=== PATIENT | male | born 1975 | race Caucasian/White ===

== ENCOUNTER → 2021-04-23 | Outpatient (CLI) | payer OTHER ==
--- NOTE | 2021-04-24 03:59 | REP ---
INDICATION: TINNITUS COMPARISON: None. TECHNIQUE: Norman scale and color Doppler evaluation using linear high frequency transducer Findings: FINDINGS: Two-dimensional norman scale and color images demonstrate normal arterial lumen with laminar flow and no appreciable narrowing. Color Doppler interrogation demonstrates normal arterial wave patterns and velocities with no significant spectral broadening. Normal flow direction is appreciated in the bilateral vertebral arteries. ICA peak systolic velocity: Right 46.0 cm/s; Left 54.9 cm/s ICA diastolic velocity: Right 25.6 cm/s; Left 24.6 cm/s ECA peak systolic velocity: Right 53.3 cm/s; Left 62.2 cm/s CCA peak systolic velocity: Right 96.2 cm/s; Left 79.3 cm/s ICA/CCA ratio: Right 0.48 cm/s; Left 0.69 cm/s IMPRESSION: No hemodynamically significant areas of narrowing or stenosis appreciated. Based on set standards narrowing falls within the normal/less than 50% range. <Electronically signed by Chucky Shin > 04/24/21 0356
== END ==
LOC: M RAD 11:37 → EDUNIT# 12:00
PROVIDERS: ATTEND Otolaryngology
DX: H93.19 Tinnitus, unspecified ear (principal)

== ENCOUNTER 2021-05-11 06:33 | Day surgery (SDC) | payer OTHER ==
[~2021-05-11] VITALS: Ht 172.7 cm; Wt 79.8 kg
[~2021-05-11 06:33] MED LIST: NS 1,000 ML IV ONE
--- OUTSIDE RECORDS SUMMARY | 2021-05-11 06:36 | CCD | Continuity of Care Document ---
Author Author Alan SAINI DO Organization Unknown Address [address] [place] [phone] Phone [phone] Problems Description No Information Available Social History Type Date Description Comments Sex Unknown Allergies, Adverse Reactions, Alerts Description No Known Drug Allergies Medications Active Medications SIG Qnty Indications Ordering Provide r Date Lisinopril 10mg Tablets Osvaldo Saini DO 03/05/2021 Immunizations Description No Information Available Vital Signs Date Vital Result Comment 03/27/2021 10:09am Height 68 inches 5'8" Weight 175.00 lb BMI (Body Mass Index) 26.6 kg/m2 Pain Level 0 03/05/2021 8:36am Height 68 inches 5'8" Weight 175.00 lb BMI (Body Mass Index) 26.6 kg/m2 Respiratory Rate 18 /min Pain Level 0 Results Description No Information Available Procedures Date Code Description Status 03/05/2021 48794 Office/Outpatient [facility] 15- 29 Minutes Completed Medical Devices Description No Information Available Encounters Type Date Location Provider Dx Diagnosis Office Visit 03/05/2021 8:30a Main Office Osvaldo Saini DO H93.11 Tinnitus, right ear Assessments Date Code Description Provider 03/27/2021 H93.11 Tinnitus, right ear Osvaldo santana DO 03/05/2021 H93.11 Tinnitus, right ear Carlo maddox MD 03/05/2021 H93.11 Tinnitus, right ear Osvaldo santana DO Plan of Treatment Future Appointment(s):* 05/15/2021 1:15 pm - Raffi Santoyo MS, Pac at Main Office 03/27/2021 - Osvaldo Saini DO* H93.11 Tinnitus, right ear* Comments:* This is a 45 year old patient who presents to clinic for MRI follow up of brain. Patient reports ringing in right ear and sensitivity to loud noises. Denies any headaches, nausea, dizziness. Imaging was pulled up and personally reviewed by the provider which revealed, possible sinusitis along with normal results and no masses, which was confirmed on the report. At this time the provider is recommending a referral to Dr. Rivera due to hearing sensitivity and sensitivity to loud noises and to FU in 6-8 weeks with us. Patient was advised to call us sooner if symptoms worsen or change.I discussed the patients diagnosis with them went over imaging and made conservative recommendations. After discussion we together with the patient decided on a plan. I explained if any changes in neurological exam or progressive worsening of symptoms including but not limited to bowel and bladder they are to return sooner I, Lou Singh, scribing for and in the presence of Dr. Osvaldo Saini. Functional Status Description No Information Available Mental Status Description No Information Available Referrals Refer to Reason for Referral Status Appt Date Osvaldo Saini DO tinnitus Created [address] [place] [phone]
--- OUTSIDE RECORDS SUMMARY | 2021-05-11 06:36 | CCD | Continuity of Care Document ---
Author Author Jamshid Alvaresmir [facility] Unknown Address [address] [place] [address] Phone [phone] Problems Description No Information Available Social History [...] Information Available Procedures Date Code Description Status 03/27/2021 45205 MRI Brain Technical W/O Contrast , Followed By Contrast Completed 03/27/2021 31098 MRI Brain Technical W/O Contrast , Followed By Contrast Completed 03/27/2021 89361 MRI Brain Professional W/O Contr ast, Followed By Contrast Completed 03/27/2021 01820 MRI Brain Professional W/O Contr ast, Followed By Contrast Completed 03/05/2021 80209 Office/Outpatient [facility] 15- 29 Minutes Completed Medical Devices Description No Information Available Encounters Type Date Location Provider Dx Diagnosis Office Visit 03/05/2021 8:30a Main Office Osvaldo Saini DO H93.11 Tinnitus, right ear Assessments Date Code Description Provider 03/27/2021 H93.11 Tinnitus, right ear Bj schafer MD 03/27/2021 H93.11 Tinnitus, right ear Osvaldo santana DO 03/27/2021 H93.11 Tinnitus, right ear MRI Shubham portillo 03/27/2021 H93.11 Tinnitus, right ear Osvaldo Spencer santana, DO 03/05/2021 H93.11 Tinnitus, right ear Carlo maddox MD 03/05/2021 H93.11 Tinnitus, right ear Osvaldo Spencer santana, DO Plan of Treatment Future Appointment(s):* 05/15/2021 1:15 pm - Raffi Santoyo MS, Pac at Main Office 03/05/2021 - Osvaldo Saini, DO* H93.11 Tinnitus, right ear* Comments:* This is a 45 year old pt who presents to the office for his initial exam.He continues to complain of ringing in the bilaterally ears worse on right than left x8 months. positive for Pringle syndrome genes . father from colon cancer at age of 44. grandfather from lung cancer at a young age. patient has infrequent upper and lower GI colonoscopy this for surveillance purposes. last colonoscopy 3 years ago--> no obvious lesion found per patient. Pt states he has been having ringing in the ears for the last 8 months. Denies any headache, blurred vision, or instability. Pt has pringle syndrome. Father of colon cancer at the age pf 44, this gene runs in his family. MRI of the brain done 01/15/2021 shows ? right CN 8 lesion . on examination AAO x3, GCS 15, moving all extremities x4 with full strength.Eyes: visual rodriguez full on confrontation testingcranial 2-12 grossly intact Speech is fluent, with intact registration/recall, repetition, naming, comprehension. Attentions is considered to be appropriate. No signs of apraxia. No left-right confusion.(+) calc -->The patient can calculate, subtract 7 or 1 serially from 100. Abstract thinking: Intact No Neglect/ Aj-neglectMemory exam : Long-term/intermediate and short-term memory :intactcoordination : no dysmetria or nystagmus, no DDK Pt will bring official report of brain MRI from 01/15/2021 to next appointment. At this time, we will order an MRI brain w/wo and FU accordingly. recommendation1. MRI and MRA of the brain with and without contrast with FIESTA sequence2. formal hearing testing evaluation report including BLANKBOOK FORWARDER ( pure tone audiometry) and speech discrimination testing -->Baseline comparison3. follow-up in 3-4 weeks above MRI [place] imaging report 4. continue to follow-up with the GI doctor for both upper and lower GI surveillance endoscopies5. Follow-up with the ENT Dr Menjivar formal hearing testing BLANKBOOK FORWARDER and speech discrimination testingI discussed the patients diagnosis with them went over imaging and made conservative recommendations. After discussion we together with the patient decided on a plan. I explained if any changes in neurological exam or progressive worsening of symptoms including but not limited to bowel and bladder they are to return sooner. I, Mira Ponce, scribing for and in the prescence of Dr. Carlo Gonsalves MD. Functional Status Description No Information Available Mental Status Description No Information Available Referrals Refer to Reason for Referral Status Appt Date Osvaldo Saini DO tinnitus Created [address] [place] [phone] Created
--- OUTSIDE RECORDS SUMMARY | 2021-05-11 06:36 | CCD | Continuity of Care Document ---
Author Author Alan SAINI DO Organization Unknown Address [address] [place] [address] Phone [phone] Problems Description No Information Available Social History Type Date Description Comments Sex Unknown Allergies, Adverse Reactions, Alerts Description No Known Drug Allergies Medications Active Medications SIG Qnty Indications Ordering Provide r Date Lisinopril 10mg Tablets Osvaldo Saini DO 03/05/2021 Immunizations Description No Information Available Vital Signs Date Vital Result Comment 03/05/2021 8:36am Height 68 inches 5'8" Weight 175.00 lb BMI (Body Mass Index) 26.6 kg/m2 Respiratory Rate 18 /min Pain Level 0 Results Description No Information Available Procedures Description No Information Available Medical Devices Description No Information Available Encounters Description No Information Available Assessments Date Code Description Provider 03/05/2021 H93.11 Tinnitus, right ear Osvaldo santana DO Plan of Treatment Future Appointment(s):* 03/27/2021 9:15 am - Osvaldo Saini DO at Main Office * 03/27/2021 9:00 am - [facility] [place] 03/05/2021 - Osvaldo Saini DO* H93.11 Tinnitus, right ear* New Xrays:* MRI Brain W/Wo Contrast, Ordered: 03/05/21 * Comments:* This is a 45 year old [...] 15, moving all extremities x4 with full stre ngth.Eyes: visual rodriguez full on confrontation testingcranial 2-12 [...] sequence2. formal hearing testing evaluation report including TOPPER PRESS OPERATOR ( pure tone audiometry) and speech discrimination testing -->Baseline comparison3. follow-up in 3-4 weeks above MRI [place] imaging report 4. continue to follow-up with the GI doctor for both upper and lower GI surveillance endoscopies5. Follow-up with the ENT Dr Menjivar formal hearing testing TOPPER PRESS OPERATOR and speech discrimination testingI discussed the patients diagnosis with them went over imaging and made conservative recommendations. After discussion we together with the patient decided on a plan. I explained if any changes in neurological exam or progressive worsening of symptoms including but not limit ed to bowel and bladder they are to return sooner. I, Mira Ponce, scribing for and in the prescence of Dr. Carlo Gonsalves MD. Functional Status Description No Information Available Mental Status Description No Information Available Referrals Description No Information Available
--- OUTSIDE RECORDS SUMMARY | 2021-05-11 06:36 | CCD | Continuity of Care Document ---
Author Author [facility] Teena Maldonadoadimir [facility] Unknown Address [address] [place] [address] Phone [phone] Problems Description No Information Available Social History [...] Available Procedures Date Code Description Status 03/05/2021 74759 Office/Outpatient [facility] 15- 29 Minutes Completed Medical Devices [...] Appt Date Osvaldo Saini DO tinnitus Created [address] [place] [phone]
--- OUTSIDE RECORDS SUMMARY | 2021-05-11 06:36 | CCD | Continuity of Care Document ---
Author Author Alan SAINI DO Organization Unknown Address [address] [place] [phone] Phone [phone] Problems Description No Information Available Social History [...] Available Procedures Date Code Description Status 03/05/2021 51956 Office/Outpatient [facility] 15- 29 Minutes Completed Medical Devices [...] Appt Date Osvaldo Saini DO tinnitus Created [address] [place] [phone]
--- OUTSIDE RECORDS SUMMARY | 2021-05-11 06:36 | CCD | Continuity of Care Document ---
Author Author Alan BARROW Organization Unknown Address [address] [place] [address] Phone [phone] Care Team Providers Care Lead Software Engineer Name Role Phone Rocco Morton AUTM [phone] Problems Active Problems Provider Date Screening for malignant neoplasm of colon Benton hunter M.D. Onset: 03/24/2021 Social History Type Date Description Comments Sex Unknown ETOH Use Denies alcohol use Tobacco Use Start: Unknown Patient has never smoked Allergies and adverse reactions Description No Known Drug Allergies Medications Active Medications SIG Qnty Indications Ordering Provide r Date Suprep Bowel Prep Kit 17.5-3.13-1.6GM/177ML Solution use as directed 354ml Benton Barrow M.D. 03/24/2021 History Medications No Active Medications Benton diallo M.D. 03/24/2021 - 03/24/2021 Immunizations Description No Information Available Vital Signs Date Vital Result Comment 03/24/2021 10:36am Height 68 inches 5'8" Weight 181.00 lb BP Systolic 129 mmHg BP Diastolic 82 mmHg Heart Rate 62 /min BMI (Body Mass Index) 27.5 kg/m2 Weight 82.102 kg Body Temperature 97.7 F Results Description No Information Available Procedures Description No Information Available Medical Devices Description No Information Available Encounters Description No Information Available Assessments Date Code Description Provider 03/24/2021 Z15.09 Pringle syndrome Benton begum M.D. Plan of Treatment Future Appointment(s):* 04/27/2021 7:30 am - Jonna at Main Office * 05/11/2021 2:15 pm - Benton Barrow M.D. at Main Office 03/24/2021 - Benton Barrow M.D.* Z15.09 Pringle syndrome* Comments:* 45 yo ADS who presents for a colonoscopy/egd due to a h/o Pringle Syndrome. Last scope was 4 yrs ago. No c/o abdominal pain, weight loss, change in bowel habits, or rectal bleeding. No family h/o colon cancer. No h/o chest pain, or sob. Natasha n:1. Colonoscopy + egd2. Informed consent. Functional Status Description No Information Available Mental Status Description No Information Available Referrals Refer to Dr Reason for Referral Status Appt Date Benton Barrow M.D. Scheduled [address] [place] [address] [phone]
--- OUTSIDE RECORDS SUMMARY | 2021-05-11 06:36 | CCD | Continuity of Care Document ---
Author Author Alan SAINI DO Organization Unknown Address [address] [place] [address] Phone [phone] Problems Description No Information Available Social History [...] Available Procedures Date Code Description Status 03/27/2021 83295 Office/Outpatient Established [place] [facility] 10-19 Min Completed 03/27/2021 68167 MRI Brain Technical W/O Contrast , Followed By Contrast Completed 03/27/2021 18694 MRI Brain Technical W/O Contrast , Followed By Contrast Completed 03/27/2021 63031 MRI Brain Professional W/O Contr ast, Followed By Contrast Completed 03/27/2021 88579 MRI Brain Professional W/O Contr ast, Followed By Contrast Completed 03/05/2021 01221 Office/Outpatient [place] [facility] 15- 29 Minutes Completed Medical Devices Description No Information Available Encounters Type Date Location Provider Dx Diagnosis Office Visit 03/27/2021 9:15a Main Office Osvaldo Saini DO H93.11 Tinnitus, right ear Office Visit 03/05/2021 8:30a Main Office Osvaldo Saini DO H93.11 Tinnitus, right ear Assessments Date Code Description Provider 03/27/2021 H93.11 Tinnitus, right ear Bj schafer MD 03/27/2021 H93.11 Tinnitus, right ear Osvaldo Spencer santana, DO 03/27/2021 H93.11 Tinnitus, right ear MRI Shubham matiasd 03/27/2021 H93.11 Tinnitus, right ear Osvaldomasha santana, DO 03/05/2021 H93.11 Tinnitus, right ear Carlo maddox MD 03/05/2021 H93.11 Tinnitus, right ear Osvaldo Spencer santana, DO Plan of Treatment Future Appointment(s):* 05/15/2021 1:15 pm - Raffi Santoyo MS, Pac at Main Office 03/05/2021 - Osvaldo Saini DO* H93.11 Tinnitus, [...] sequence2. formal hearing testing evaluation report including BEEF PUSHER ( pure tone audiometry) and speech discrimination testing -->Baseline comparison3. follow-up in 3-4 weeks above MRI [place] imaging report 4. continue to follow-up with the GI doctor for both upper and lower GI surveillance endoscopies5. Follow-up with the ENT Dr Menjivar formal hearing testing BEEF PUSHER and speech discrimination testingI discussed the patients [...] Appt Date Osvaldo Saini DO tinnitus Created [address] [place] [phone] Created
--- OUTSIDE RECORDS SUMMARY | 2021-05-11 06:36 | CCD | Continuity of Care Document ---
Author Author Alan SAINI DO Organization Unknown Address [address] [place] [phone] Phone [phone] Problems Description No Information Available Social History [...] Available Procedures Date Code Description Status 03/05/2021 07521 Office/Outpatient [facility] 15- 29 Minutes Completed [...] Appt Date Osvaldo Saini DO tinnitus Created [address] [place] [phone]
--- OUTSIDE RECORDS SUMMARY | 2021-05-11 06:36 | CCD ---
Continuity of Care Document (CCD) Created on: 03/25/2021 Alan Santana External Reference #: [id number] : [id number] Sex: Male Author Author Alan BARROW Organization Unknown Address [address] [place] [address] Phone [phone] Care Team Providers Care Tool Filer Name Role Phone Rocco Morton AUTM [phone] Problems Active Problems Provider Date Screening for [...] F Results Description No Information Available Procedures Date Code Description Status 03/24/2021 17139 Office/Outpatient [place] [facility] 30 -44 Minutes Completed Medical Devices Description No Information Available Encounters Type Date Location Provider Dx Diagnosis Office Visit 03/24/2021 10:30a Main Office Benton Barrow M.D. 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 Scheduled [address] [place] [phone]
--- OUTSIDE RECORDS SUMMARY | 2021-05-11 06:37 | CCD ---
Author Author [facility] Organization [facility] Address Unknown Phone Unavailable Care Team Providers Care Cooler Operator Name Role Phone Jay Barrow MD Unavailable Unavailable Jay Barrow MD Unavailable Unavailable Jay Barrow MD Unavailable Unavailable Jay Barrow MD Unavailable Unavailable Jay Barrow MD Unavailable Unavailable Jay Barrow MD Unavailable Unavailable Jay Barrow MD Unavailable Unavailable Jay Barrow MD Unavailable Unavailable Jay Barrow MD Unavailable Unavailable Jay Barrow MD Unavailable Unavailable Jay Barrow MD Unavailable Unavailable Jay Barrow MD Unavailable Unavailable Jay Barrow MD Unavailable Unavailable Jay Barrow MD Unavailable Unavailable Jay Barrow MD Unavailable Unavailable Jay Barrow MD Unavailable Unavailable Jay Barrow MD Unavailable Unavailable Jay Barrow MD Unavailable Unavailable Jay Barrow MD Unavailable Unavailable Jay Barrow MD Unavailable Unavailable Jay Barrow MD Unavailable Unavailable Jay Barrow MD Unavailable Unavailable Jay Barrow MD Unavailable Unavailable Jay Barrow MD Unavailable Unavailable Jay Barrow MD Unavailable Unavailable Jay Barrow MD Unavailable Unavailable Jay Barrow MD Unavailable Unavailable Jay Barrow MD Unavailable Unavailable Jay Barrow MD Unavailable Unavailable Jay Barrow MD Unavailable Unavailable Jay Barrow MD Unavailable Unavailable Jay Barrow MD Unavailable Unavailable Jay Barrow MD Unavailable Unavailable Jay Barrow MD Unavailable Unavailable Jay Barrow MD Unavailable Unavailable Jay Barrow MD Unavailable Unavailable Jay Barrow MD Unavailable Unavailable Jay Barrow MD Unavailable Unavailable Jay Barrow MD Unavailable Unavailable Jay Barrow MD Unavailable Unavailable Jay Barrow MD Unavailable Unavailable Jay Barrow MD Unavailable Unavailable Jay Barrow MD Unavailable Unavailable Jay Barrow MD Unavailable Unavailable Jay Barrow MD Unavailable Unavailable Jay Barrow MD Unavailable Unavailable Jay Barrow MD Unavailable Unavailable Jay Barrow MD Unavailable Unavailable Jay Barrow MD Unavailable Unavailable Jay Barrow MD Unavailable Unavailable Qandah, Basem Osvaldo Aziz DO Unavailable Unavailab le Qandah, Basem Osvaldo Aziz DO Unavailable Unavailab le Qandah, Basem Osvaldo Aziz DO Unavailable Unavailab le Qandah, Basem Osvaldo Aziz DO Unavailable Unavailab le Qandah, Basem Osvaldo Aziz DO Unavailable Unavailab le Qandah, Basem Osvaldo Aziz DO Unavailable Unavailab le Qandah, Basem Osvaldo Aziz DO Unavailable Unavailab le Qandah, Basem Osvaldo Aziz DO Unavailable Unavailab le Qandah, Basem Osvaldo Aziz DO Unavailable Unavailab le Qandah, Basem Osvaldo Aziz DO Unavailable Unavailab le Qandah, Basem Osvaldo Aziz DO Unavailable Unavailab le Qandah, Basem Osvaldo Aziz DO Unavailable Unavailab le Qandah, Basem Osvaldo Aziz DO Unavailable Unavailab le Qandah, Basem Osvaldo Aziz DO Unavailable Unavailab le Qandah, Basem Osvaldo Aziz DO Unavailable Unavailab le Qandah, Basem Osvaldo Aziz DO Unavailable Unavailab le Qandah, Basem Osvaldo Aziz DO Unavailable Unavailab le Qandah, Basem Osvaldo Aziz DO Unavailable Unavailab le Qandah, Basem Osvaldo Aziz DO Unavailable Unavailab le Qandah, Basem Osvaldo Aziz DO Unavailable Unavailab le Qandah, Basem Osvaldo Aziz DO Unavailable Unavailab le Qandah, Basem Osvaldo Aziz DO Unavailable Unavailab le Qandah, Basem Osvaldo Aziz DO Unavailable Unavailab le Qandah, Basem Osvaldo Aziz DO Unavailable Unavailab le Qandah, Basem Osvaldo Aziz DO Unavailable Unavailab le Qandah, Basem Osvaldo Aziz DO Unavailable Unavailab le Qandah, Basem Osvaldo Aziz DO Unavailable Unavailab le Qandah, Basem Osvaldo Aziz DO Unavailable Unavailab le Qandah, Basem Osvaldo Aziz DO Unavailable Unavailab le Qandah, Basem Osvaldo Aziz DO Unavailable Unavailab le Qandah, Basem Osvaldo Aziz DO Unavailable Unavailab le Qandah, Basem Osvaldo Aziz DO Unavailable Unavailab le Qandah, Basem Osvaldo Aziz DO Unavailable Unavailab le Qandah, Basem Osvaldo Aziz DO Unavailable Unavailab le Qandah, Basem Osvaldo Aziz DO Unavailable Unavailab le Qandah, Basem Osvaldo Aziz DO Unavailable Unavailab le Qandah, Basem Osvaldo Aziz DO Unavailable Unavailab le Qandah, Basem Osvaldo Aziz DO Unavailable Unavailab le Qandah, Basem Osvaldo Aziz DO Unavailable Unavailab le Qandah, Basem Osvaldo Aziz DO Unavailable Unavailab le Qandah, Basem Osvaldo Aziz DO Unavailable Unavailab le Qandah, Basem Osvaldo Aziz DO Unavailable Unavailab le Qandah, Basem Osvaldo Aziz DO Unavailable Unavailab le Qandah, Basem Osvaldo Aziz DO Unavailable Unavailab le Qandah, Basem Osvaldo Aziz DO Unavailable Unavailab le Qandah, Basem Osvaldo Aziz DO Unavailable Unavailab le Qandah, Basem Osvaldo Aziz DO Unavailable Unavailab le Qandah, Basem Osvaldo Aziz DO Unavailable Unavailab le Qandah, Basem Osvaldo Aziz DO Unavailable Unavailab le Qandah, Basem Osvaldo Aziz DO Unavailable Unavailab le Qandah, Basem Osvaldo Aziz DO Unavailable Unavailab le Qandah, Basem Osvaldo Aziz DO Unavailable Unavailab le Qandah, Basem Osvaldo Aziz DO Unavailable Unavailab le Qandah, Basem Osvaldo Aziz DO Unavailable Unavailab le Qandah, Basem Osvaldo Aziz DO Unavailable Unavailab le Qandah, Basem Osvaldo Aziz DO Unavailable Unavailab le Qandah, Basem Osvaldo Aziz DO Unavailable Unavailab le Qandah, Basem Osvaldo Aziz DO Unavailable Unavailab le Qandah, Basem Osvaldo Aziz DO Unavailable Unavailab le Qandah, Basem Osvaldo Aziz DO Unavailable Unavailab le Qandah, Basem Osvaldo Aziz DO Unavailable Unavailab le Qandah, Basem Osvaldo Aziz DO Unavailable Unavailab le Qandah, Basem Osvaldo Aziz DO Unavailable Unavailab le Qandah, Basem Osvaldo Aziz DO Unavailable Unavailab le Qandah, Basem Osvaldo Aziz DO Unavailable Unavailab le Qandah, Basem Osvaldo Aziz DO Unavailable Unavailab le Qandah, Basem Osvaldo Aziz DO Unavailable Unavailab le Qandah, Basem Osvaldo Aziz DO Unavailable Unavailab le Qandah, Basem Osvaldo Aziz DO Unavailable Unavailab le Qandah, Basem Osvaldo Aziz DO Unavailable Unavailab le Qandah, Basem Osvaldo Aziz DO Unavailable Unavailab le Qandah, Basem Osvaldo Aziz DO Unavailable Unavailab le Qandah, Basem Osvaldo Aziz DO Unavailable Unavailab le Qandah, Basem Osvaldo Aziz DO Unavailable Unavailab le Qandah, Basem Osvaldo Aziz DO Unavailable Unavailab le Qandah, Basem Osvaldo Aziz DO Unavailable Unavailab le Qandah, Basem Osvaldo Aziz DO Unavailable Unavailab le Re-disclosure Warning The records that you are about to access may contain information from federally-assisted alcohol or drug abuse programs. If such information is present, then the following federally mandated warning applies: This information has been disclosed to you from records protected by federal confidentiality rules (42 CFR part 2). The federal rules prohibit you from making any further disclosure of this information unless further disclosure is expressly permitted by the written consent of the person to whom it pertains or as otherwise permitted by 42 CFR part 2. A general authorization for the release of medical or other information is NOT sufficient for this purpose. The Federal rules restrict any use of the information to criminally investigate or prosecute any alcohol or drug abuse patient.The records that you are about to access may contain highly sensitive health information, the redisclosure of which is protected by Article 27-F of the [facility] Public Health law. If you continue you may have access to information: Regarding HIV / AIDS; Provided by facilities licensed or operated by the [facility] Office of Mental Health; or Provided by the [facility] Office for People With Developmental Disabilities. If such information is present, then the following [facility] mandated warning applies: This information has been disclosed to you from confidential records which are protected by state law. State law prohibits you from making any further disclosure of this information without the specific written consent of the person to whom it pertains, or as otherwise permitted by law. Any unauthorized further disclosure in violation of state law may result in a fine or fci sentence or both. A general authorization for the release of medical or other information is NOT sufficient authorization for further disc losure. Encounters Encounter Providers Location Date Indications Data Source(s ) Outpatient Attender: [facility] Office 03/27/2021 09:15:00 A M EDT [facility] ([facility]) Outpatient Attender: Benton Barrow MD Main Office 03/24/2021 10:30:00 AM EDT [facility] 08:30:00 A M EDT [facility] ([facility]) Immunizations Vaccine Date Status Description Data Source(s) COVID-19 VACC, MRNA(PFIZER)/PF 12/02/2020 12:00:00 AM EDT completed [facility] COVID-19 VACCINE Pfizer 12/02/2020 12:00:00 AM EDT completed [facility] Vaccine Series Complete: NOThis Data was Submitted to [facility] Via [facility]. Medications Medication Brand Name Start Date Product Form Dose Route Admi nistrative Instructions Pharmacy Instructions Status Indications Reaction Description Data Source(s) No Active Medications 03/24/2021 12:00:00 AM EDT completed [facility] ([facility]) Suprep Bowel Prep Kit Suprep Bowel Prep Kit 03/24/2021 12:00:00 AM EDT active [facility]) Lisinopril 10 MG Oral Tablet Lisinopril 03/05/2021 12:00:00 AM EDT active [facility] ([facility]) Insurance Providers Payer name Policy type / Coverage type Policy ID Covered democrat ID Covered democrat's relationship to verdugo Policy Verdugo Plan Information [employer] [id number] SELF PAY ONLY Problems, Conditions, and Diagnoses Code Display Name Description Problem Type Effective Dates Data Source(s) [id number] Screening for malignant neoplasm of colo n Screening for malignant neoplasm of colon Problem 03/24/2021 12:00:00 AM EDT [facility] ([facility]) Surgeries/Procedures Procedure Description Date Indications Data Source(s) MRI BRAIN BRAIN STEM W/O &W/CONTRAST MATERIAL 03/27/20 12:00:00 AM EDT [facility] ([facility]) MRI BRAIN BRAIN STEM W/O &W/CONTRAST MATERIAL 03/27/20 12:00:00 AM EDT [facility] ([facility]) MRI BRAIN BRAIN STEM W/O &W/CONTRAST MATERIAL 03/27/20 12:00:00 AM EDT [facility] ([facility]) MRI BRAIN BRAIN STEM W/O &W/CONTRAST MATERIAL 03/27/20 12:00:00 AM EDT [facility] ([facility]) OFFICE OUTPATIENT VISIT 10 MINUTES 03/27/2021 12:00:00 AM EDT [facility] ([facility]) OFFICE OUTPATIENT NEW 30 MINUTES 03/24/2021 12:00:00 A M EDT [facility] ([facility]) OFFICE OUTPATIENT NEW 20 MINUTES 03/05/2021 12:00:00 A M EDT [facility] ([facility]) MRI Brain W/O Contrast, Followed By Contrast 12:00:00 AM EDT [facility] ([facility]) MRI Brain W/O Contrast, Followed By Contrast 12:00:00 AM EDT [facility] ([facility]) Results ID Date Data Source [id number] 05/06/2021 03:27:00 PM EDT [facility] Name Value Range Interpretation Code Description Data Thao rce(s) Supporting Document(s) SARS coronavirus 2 RNA Not Detected [facility] This lab was ordered by [facility] and reported by [facility]. Procedure Social History No Information Vital Signs ID Date Data Source UNK Name Value Range Interpretation Code Description Data Source(s) Body height 68 [in_i] 68 [in_i] [facility] ([facility]) 5'8" Body weight 175.00 [lb_av] 175.00 [lb_av] [facility] ([facility]) Body mass index (BMI) [Ratio] 26.6 kg/m2 26.6 k g/m2 [facility] ([facility]) Body temperature 97.7 [degF] 97.7 [degF] [facility] ([facility]) Body height 68 [in_i] 68 [in_i] [facility] 5'8" Body weight 181.00 [lb_av] 181.00 [lb_av] [facility] ([facility]) Systolic blood pressure 129 mm[Hg] 129 mm[Hg] M [facility] ([facility]) Diastolic blood pressure 82 mm[Hg] 82 mm[Hg] [facility] ([facility]) Heart rate 62 /min 62 /min [facility]) Body mass index (BMI) [Ratio] 27.5 kg/m2 27.5 k g/m2 [facility] ([facility]) Body weight 82.102 kg 82.102 kg [facility] Body height 68 [in_i] 68 [in_i] [facility] ([facility] 5'8" Body weight 175.00 [lb_av] 175.00 [lb_av] [facility] ([facility]) Body mass index (BMI) [Ratio] 26.6 kg/m2 26.6 k g/m2 [facility] ([facility]) Respiratory rate 18 /min 18 /min [facility] ( [facility])
[2021-05-11] MEDS ORDERED: LIDOCAINE 2% 100MG/5ML SDV (FOR ANES.) As Ordered ONE (07:04)
[2021-05-11] MEDS ORDERED: fentaNYL 100 MCG/2 ML INJECTION (J3010) As Ordered ONE (07:04)
[2021-05-11] MEDS ORDERED: propofoL 500 MG/50 ML VIAL As Ordered ONE (07:04)
--- NOTE | 2021-05-11 07:49 | ROOR ---
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 Procedure: Pre-Anesthesia Assessment: - The heart rate, respiratory rate, oxygen saturations, blood pressure, adequacy of pulmonary ventilation, and response to care were monitored throughout the procedure. The Endoscope was introduced through the mouth, and advanced to the second part of duodenum. The upper GI endoscopy was accomplished without difficulty. The patient tolerated the procedure well. Findings: The Z-line was regular and was found 40 cm from the incisors. No other significant abnormalities were identified in a careful examination of the stomach. The exam of the duodenum was otherwise normal. Biopsies were taken with a cold forceps in the gastric antrum for Helicobacter pylori testing. The exam was otherwise without abnormality. Impression: - Z-line regular, 40 cm from the incisors. - The examination was otherwise normal. - Biopsies were taken with a cold forceps for Helicobacter pylori testing. - The examination was otherwise normal. Recommendation: - Patient has a contact number available for emergencies. The signs and symptoms of potential delayed complications were discussed with the patient. Return to normal activities tomorrow. Written discharge instructions were provided to the patient. - High fiber diet. - Discharge patient to home. - Continue present medications. - Await pathology results. - Telephone GI clinic for pathology results in 1 week. - Return to referring physician. - The findings and recommendations were discussed with the patient. Procedure Code(s): --- Professional --- 34007, Esophagogastroduodenoscopy, flexible, transoral; with biopsy, single or multiple Diagnosis Code(s): --- Professional --- C18.9, Malignant neoplasm of colon, unspecified Z15.09, Genetic susceptibility to other malignant neoplasm CPT copyright 2019 [employer]. All rights reserved. The codes documented in this report are preliminary and upon knocker off review may be revised to meet current compliance requirements. Benton Barrow MD Benton Barrow MD 05/11/2021 7:48:23 AM Electronically signed by Benton Barrow MD Number of Addenda: 0 Note Initiated On: 05/11/2021 7:34 AM Estimated Blood Loss: Estimated blood loss: none.
--- NOTE | 2021-05-11 08:05 | ROOR ---
Patient Name: Alan Santana Procedure Date: 05/11/2021 7:36 AM Date of : 1975 Age: 46 Room: [facility] Gender: Male Note Status: Finalized Procedure: Total Colonoscopy to Cecum + ileoscopy Indications: Pringle Syndrome Providers: Benton Barrow MD Referring MD: MEL LEAL MD Requesting Provider: Medicines: Monitored Anesthesia Care Complications: No immediate complications. Procedure: Pre-Anesthesia Assessment: - The heart rate, respiratory rate, oxygen saturations, blood pressure, adequacy of pulmonary ventilation, and response to care were monitored throughout the procedure. The Colonoscope was introduced through the anus and advanced to the terminal ileum, with identification of the appendiceal orifice and IC valve. The colonoscopy was performed without difficulty. The patient tolerated the procedure well. The quality of the bowel preparation was excellent. Findings: The perianal and digital rectal examinations were normal. Non-bleeding internal hemorrhoids were found during retroflexion. The hemorrhoids were small and Grade I (internal hemorrhoids that do not prolapse). No other significant abnormalities were identified in a careful examination of the remainder of the colon. The terminal ileum appeared normal. The exam was otherwise without abnormality on direct and retroflexion views. Impression: - Non-bleeding internal hemorrhoids. - The examined portion of the ileum was normal. - The examination was otherwise normal on direct and retroflexion views. - No specimens collected. - The exam was otherwise normal to the cecum. Recommendation: - Patient has a contact number available for emergencies. The signs and symptoms of potential delayed complications were discussed with the patient. Return to normal activities tomorrow. Written discharge instructions were provided to the patient. - High fiber diet. - Discharge patient to home. - Continue present medications. - Repeat colonoscopy in 2 years for screening purposes. - Return to referring physician. - The findings and recommendations were discussed with the patient. Procedure Code(s): --- Professional --- 09198, Colonoscopy, flexible; diagnostic, including collection of specimen(s) by brushing or washing, when performed (separate procedure) Diagnosis Code(s): --- Professional --- K64.0, First degree hemorrhoids Z15.09, Genetic susceptibility to other malignant neoplasm CPT copyright 2019 [employer]. All rights reserved. The codes documented in this report are preliminary and upon banking and finance instructor review may be revised to meet current compliance requirements. Benton Barrow MD Bneton Barrow MD 05/11/2021 8:04:55 AM Electronically signed by Benton Barrow MD Number of Addenda: 0 Note Initiated On: 05/11/2021 7:36 AM Estimated Blood Loss: Estimated blood loss: none.
[2021-05-11 08:25] VITALS: BP 132/87
[2021-05-11] MEDS ORDERED: SIMETHICONE 40MG/0.6ML DROPS 30ML As Ordered ONE (14:29)
== END 2021-05-11 08:30 | disposition home or self-care (01) ==
LOC: M OPP 06:33
PROVIDERS: ATTEND Internal Medicine Gastroenterology
DX: Z15.09 Genetic susceptibility to other malignant neoplasm (principal); K64.0 First degree hemorrhoids
CPT/HCPCS: 43239; 45378; 88305; J3010

== ENCOUNTER → 2021-07-06 | Outpatient (CLI) | payer OTHER ==
--- NOTE | 2021-07-06 17:12 | REPVR ---
PROCEDURE INFORMATION: Exam: CT Maxillofacial Without Contrast, Sinus Exam date and time: 07/06/2021 4:53 PM Age: 46 years old Clinical indication: Sinusitis; Type not specified TECHNIQUE: Imaging protocol: CT Maxillofacial without contrast. Focus on the sinuses. Axial, coronal and sagittal reformatted images were created and reviewed. Radiation optimization: All CT scans at this facility use at least one of these dose optimization techniques: automated exposure control; mA and/or kV adjustment per patient size (includes targeted exams where dose is matched to clinical indication); or iterative reconstruction. COMPARISON: US Duplex,carotid (complete) 04/23/2021 11:57 AM FINDINGS: Frontal sinuses: Mild polypoid right inferior frontal sinus mucosal thickening. No air-fluid levels. Ethmoid air cells: Mild ethmoid mucosal thickening. Sphenoid sinuses: Normal. No air-fluid levels. Maxillary sinuses: Mild polypoid left greater than right maxillary sinus mucosal thickening. No air-fluid levels. Ostiomeatal units patent. Nasal cavity/Septum: Unremarkable. Orbital cavity: Orbits are normal. Globes are unremarkable. Bones/joints: Unremarkable. Soft tissues: Unremarkable. IMPRESSION: Mild chronic sinusitis, as described above. Electronically signed by: Bj Clinton On 07/06/2021 17:12:23 PM
== END ==
LOC: M RAD 16:47
PROVIDERS: ATTEND Otolaryngology
DX: J32.4 Chronic pansinusitis (principal)

== ENCOUNTER → 2023-11-03 | Outpatient (CLI) | payer OTHER ==
[~2023-11-03] MED LIST changes: +LISI5TAB11 PO; -NS 1,000 ML IV ONE; +OMEP-173 PO
== END ==
LOC: M RAD 15:02
PROVIDERS: ATTEND Physician Assistant
DX: J32.8 Other chronic sinusitis (principal)

== ENCOUNTER → 2023-11-24 | Outpatient (CLI) | payer OTHER ==
[2023-11-24 09:26] LABS: HEMATOCRIT 45.1 % (42.0-52.0); MEAN CORPUSCULAR HEMOGLOBIN 30.5 pg (27.0-33.0); MEAN CORPUSCULAR HGB CONC 33.3 g/dl (32.0-36.5); MEAN CORPUSCULAR VOLUME 91.9 fl (80.0-96.0); PLATELET COUNT, AUTOMATED 246 10^3/uL (150-450); RED BLOOD COUNT 4.91 10^6/uL (4.30-6.10); WHITE BLOOD COUNT 5.8 10^3/uL (4.0-10.0)
[2023-11-24 09:30] LABS: BLOOD UREA NITROGEN 15 MG/DL (9-23); CALCIUM LEVEL 8.9 MG/DL (8.5-10.1); CARBON DIOXIDE LEVEL 29 MMOL/L (20-31); CHLORIDE LEVEL 106 MMOL/L (98-107); CREATININE FOR GFR 1.07 MG/DL (0.70-1.30); GLOMERULAR FILTRATION RATE > 60.0 (>56); GLUCOSE, FASTING 88 MG/DL (60-100); POTASSIUM SERUM 4.6 MMOL/L (3.5-5.1); SODIUM LEVEL 140 MMOL/L (136-145)
== END ==
LOC: M LAB 08:30
PROVIDERS: ATTEND Internal Medicine
DX: M72.2 Plantar fascial fibromatosis (principal); M79.672 Pain in left foot